=== PATIENT | male | born 1995 | race Caucasian/White ===

== ENCOUNTER 2017-12-06 06:34 | Emergency (ER) | payer OTHER ==
[~2017-12-06] VITALS: Ht 175.3 cm; Wt 69.4 kg
[~2017-12-06 06:34] MED LIST: BENZONATATE100 MG PO; CONCERTA54 M1 PO; ZERTEC
--- NOTE | 2017-12-06 08:08 | Diagnostic Imaging Report ---
PROCEDURE:L-SPINE COMPLETE COMPARISON:None. INDICATIONS:LOW BACK PAIN FROM FALL FINDINGS: There are 5 [id number] lumbar-type vertebral bodies. No acute, displaced fracture or subluxation. No pars interarticularis defects on the oblique radiographs. Intervertebral disc spaces and facet joints are well maintained. Sacroiliac joints are intact. Inferiorly, the sacral body is obscured by rectal gas and stool. The sacral foramina appear intact superiorly. CONCLUSION: No acute osseous abnormalities. Soft tissue, ligamentous, and cauda equina abnormalities cannot be excluded on the basis of plain radiography. Dictated by: Jose Antonio Pate M.D. on 12/06/2017 at 8:16 Electronically approved by: Jose Antonio Pate M.D. on 12/06/2017 at 8:16
[2017-12-06] MEDS ORDERED: DIAZEPAM 2 MG TAB PO ONE (08:30)
[2017-12-06] MEDS ORDERED: KETOROLAC TROMETHAMINE 60 MG/2 ML VIAL IM ONE (08:30)
[2017-12-06 09:18] LABS: CLARITY,URINE CLEAR (CLEAR); COLOR,URINE AMBER (YELLOW); KETONES,URINE NEGATIVE (NEGATIVE); LEUKOCYTE ESTERASE ,URINE NEGATIVE (NEGATIVE); NITRITE,URINE NEGATIVE (NEGATIVE); PROTEIN,URINE DIPSTICK NEGATIVE (NEGATIVE); URINE UROBILINOGEN 4 mg/dL (0.2 - 1)
[2017-12-06 09:20] LABS: BILIRUBIN,URINE 1+ (NEGATIVE)
[2017-12-06 09:31] LABS: EPITHELIAL CELLS,URINE RARE /LPF
[2017-12-06 10:02] VITALS: BP 129/73
== END 2017-12-06 10:07 | disposition home or self-care (01) ==
LOC: ER 06:34
DX: M54.5 Low back pain (principal); S30.0XXA Contusion of lower back and pelvis, initial encounter; M62.830 Muscle spasm of back; W01.198A Fall on same level from slipping, tripping and stumbling with subsequent striking against other object, initial encounter; Y93.51 Activity, roller skating (inline) and skateboarding; Y92.512 Supermarket, store or market as the place of occurrence of the external cause; J45.909 Unspecified asthma, uncomplicated
CPT/HCPCS: 72110; 81001; 87086; 99283; J1885